=== PATIENT | male | born 1990 | race Caucasian/White ===

== ENCOUNTER 2016-09-02 12:10 | Inpatient (IN) | payer OTHER ==
[~2016-09-02] VITALS: Ht 180.3 cm; Wt 98.6 kg
[2016-09-02] MEDS ORDERED: HYDR-3326 PO (12:24)
[2016-09-02] MEDS ORDERED: KETOROLAC TROMETHAMINE 30 MG INJ IVP ONE (13:15)
[2016-09-02] MEDS ORDERED: ONDANSETRON 4 MG/2 ML VIAL IV ONE (13:15)
[2016-09-02] MEDS ORDERED: MORPHINE SULFATE 2 MG/1 ML DISP.SYRIN IV ONE (13:15)
[2016-09-02] MEDS ORDERED: IV NORMAL SALINE 1000 ML BAG IV ONE ×2 (13:15→14:30)
[2016-09-02] MEDS ORDERED: MORPHINE SULFATE 4 MG/1 ML DISP.SYRIN ONE (13:24)
[2016-09-02] MEDS ORDERED: ONDANSETRON 4 MG/2 ML VIAL ONE (13:24)
--- NOTE | 2016-09-02 13:24 | NUR ---
PT IS IN ROOM #2A. DR HOOKER EVALUATED THE PT.
[2016-09-02] MEDS ORDERED: KETOROLAC TROMETHAMINE 30 MG INJ ONE (13:25)
[2016-09-02 13:27] LABS: BASOPHILS # (AUTO) 0.2 K/uL (0.0-8.0); BASOPHILS % (AUTO) 1.5 % (0.0-2.0); EOSINOPHILS # (AUTO) 0.1 K/uL (0.0-0.7); EOSINOPHILS % (AUTO) 0.5 % (0.0-7.0); HEMATOCRIT 50.2 % (40-50); HEMOGLOBIN 17.1 G/DL (14.0-18.0); LYMPHOCYTES # (AUTO) 1.4 K/UL (0.8-4.8); LYMPHOCYTES % (AUTO) 8.8 % (20.5-51.5); MEAN CORPUSCULAR HEMOGLOBIN 29.3 UUG (27.0-31.0); MEAN CORPUSCULAR HGB CONC 34 g/dL (32.0-37.0); MONOCYTES # (AUTO) 1.4 K/UL (0.1-1.30); MONOCYTES % (AUTO) 8.8 % (0.0-11.0); NEUTROPHILS # (AUTO) 13.1 K/UL (1.8-8.9); NEUTROPHILS % (AUTO) 80.4 % (38.5-71.5); PLATELET COUNT (AUTO) 262 K/UL (150-450); RED BLOOD CELL COUNT(AUTO) 5.84 MIL/UL (4.7-6.1); RED CELL DISTRIBUTION WIDTH 12.4 % (11.5-14.5); WHITE BLOOD COUNT (AUTO) 16.2 K/UL (4.0-11.2)
[2016-09-02 13:39] LABS: BAND % (MANUAL) 1 % (0-10); LYMPHOCYTES % (MANUAL) 9 % (20-40); MONOCYTES % (MANUAL) 8 % (2-10); NEUTROPHILS % (MANUAL) 82 % (42-75)
[2016-09-02 13:40] LABS: ALBUMIN 4.5 g/dL (3.4-5.0); BILIRUBIN,DIRECT 0.2 mg/dL (0.0-0.2); BILIRUBIN,TOTAL 0.8 mg/dL (0.2-1.0); CALCIUM 9.6 mg/dL (8.5-10.1); CREATININE 1.1 mg/dL (0.6-1.3); PLATELET ESTIMATE ADEQUATE; POTASSIUM 3.9 mmol/L (3.5-5.1); TOTAL PROTEIN, SERUM 9.1 g/dL (6.4-8.2)
[2016-09-02 14:57] LABS: *BILIRUBIN,URIN NEGATIVE (NEGATIVE); *BLOOD, URINE Trace-lysed (NEGATIVE); *COLOR,URINE YELLOW (YELLOW); *KETONES,URINE NEGATIVE (NEGATIVE); *PROTEIN,URINE NEGATIVE (NEGATIVE); *UROBILINOGEN,URINE 0.2 E.U./dl (NORMAL); LEUKOCYTE ESTERASE ,URINE NEGATIVE (NEGATIVE); NITRITE, URINE NEGATIVE (NEGATIVE); PH,URINE 5.5 (5.0-8.0); UGLUCOSE NEGATIVE (NEGATIVE)
[2016-09-02 15:05] LABS: *CLARITY,URINE SLIGHTLY HAZY (CLEAR)
[2016-09-02 15:06] LABS: MUCUS,URINE MANY /LPF (0-FEW); URINE AMORPHOUS URATE FEW /HPF; WBC,URINE 0-3 /HPF (0-3)
--- NOTE | 2016-09-02 18:44 | NUR ---
pt was transferd to m/s room #[id number]. report was given to mera m/isidoro.
[2016-09-02] MEDS ORDERED: ONDANSETRON 4 MG/2 ML VIAL IV PRN (19:00)
[2016-09-02] MEDS ORDERED: MAGNESIUM HYDROXIDE 30 ML LIQUID UDC PO PRN (19:00)
[2016-09-02] MEDS ORDERED: ACETAMINOPHEN 325 MG TABLET PO PRN (19:00)
[2016-09-02] MEDS ORDERED: Z GUARD REMEDY PASTE 57 GM TUBE TOP PRN (19:00)
[2016-09-02] MEDS ORDERED: ZOLPIDEM 5 MG TABLET PO PRN (19:00)
[2016-09-02] MEDS ORDERED: MORPHINE SULFATE 4 MG/1 ML DISP.SYRIN IV PRN (19:00)
[2016-09-02 19:13] VITALS: BP 107/75
--- NOTE | 2016-09-02 19:45 | NUR ---
RECEIVED PT IN BED AWAKE, ALERT AND ORIENTEDX3, ABLE TO MAKE NEEDS KNOWN. DENIES SOB OR CHEST PAIN. NO C/O N/V. REPORTS PAIN AT A TOLERABLE LEVEL AT THIS MOMENT. MADE COMFORTABLE. ALL SAFETY NEEDS MET AT THIS TIME. CALL LIGHT IN REACH. WILL CONTINUE TO MONITOR.
[2016-09-02 20:00] VITALS: BP 117/90
[2016-09-02] MEDS: HYDROCODONE/APAP 5-325MG TABLET PO PRN (22:22)
[2016-09-03] MEDS: PANTOPRAZOLE SODIUM 40 MG TABLET.DR PO SCH (06:01)
[2016-09-03 06:27] VITALS: BP 120/75
--- NOTE | 2016-09-03 06:44 | NUR ---
PT SLEPT MOST OF THE NIGHT. NO ACUTE DISTRESS NOTED. C/O SEVERE ABDOMINAL AND BACK PAIN, MANAGED WITH PRN MEDS PRESCRIBED, EFFECTIVE PER PT'S REPORT. PT WITH X1 EPISODE OF DI[place]HE[place], WILL CONTINUE TO MONITOR, WILL ENDORSE PERTINENT INFO AND CARE TO DAY SHIFT. ALL SAFETY NEEDS MET. CALL LIGHT IN REACH. SAFETY MAINTAINED.
[2016-09-03 07:05] LABS: BASOPHILS % (AUTO) 0.1 % (0.0-2.0); EOSINOPHILS # (AUTO) 0.1 K/uL (0.0-0.7); EOSINOPHILS % (AUTO) 0.9 % (0.0-7.0); HEMATOCRIT 47.2 % (40-50); HEMOGLOBIN 16.3 G/DL (14.0-18.0); LYMPHOCYTES # (AUTO) 1.8 K/UL (0.8-4.8); LYMPHOCYTES % (AUTO) 12.2 % (20.5-51.5); MEAN CORPUSCULAR HEMOGLOBIN 29.7 UUG (27.0-31.0); MEAN CORPUSCULAR HGB CONC 35 g/dL (32.0-37.0); MEAN CORPUSCULAR VOLUME 86.1 FL (82.0-92.0); MONOCYTES # (AUTO) 1.5 K/UL (0.1-1.30); MONOCYTES % (AUTO) 10.3 % (0.0-11.0); NEUTROPHILS # (AUTO) 11.5 K/UL (1.8-8.9); NEUTROPHILS % (AUTO) 76.5 % (38.5-71.5); PLATELET COUNT (AUTO) 224 K/UL (150-450); RED BLOOD CELL COUNT(AUTO) 5.48 MIL/UL (4.7-6.1); RED CELL DISTRIBUTION WIDTH 12.6 % (11.5-14.5); WHITE BLOOD COUNT (AUTO) 14.9 K/UL (4.0-11.2)
[2016-09-03 07:33] LABS: CALCIUM 9.3 mg/dL (8.5-10.1); CREATININE 1.2 mg/dL (0.6-1.3); MAGNESIUM 1.7 mg/dL (1.8-2.4); PHOSPHOROUS 4.1 mg/dL (2.5-4.9); POTASSIUM 4.3 mmol/L (3.5-5.1)
[2016-09-03 11:04] VITALS: BP 120/84
[2016-09-03] MEDS: HYDROCODONE/APAP 5-325MG TABLET PO PRN (13:23)
[2016-09-03 15:10] VITALS: BP 106/79
[2016-09-03] MEDS: MAGNESIUM SULFATE/D5W 100 ML IV SCH ×2 (17:46→18:35)
[2016-09-03 20:00] VITALS: BP 135/87
[2016-09-04 06:00] VITALS: BP 100/66
[2016-09-04] MEDS: PANTOPRAZOLE SODIUM 40 MG TABLET.DR PO SCH (06:11)
--- NOTE | 2016-09-04 07:00 | NUR ---
PT SLEPT WELL PER SHIFT. NO ACUTE DISTRESS NOTED. PAIN REPORTED AT A TOLERABLE LEVEL, NO PRN MED REQUESTED. ALL NEEDS ATTENDED. UNABLE TO COLLECT STOOL FOR STUDIES, NO BM PER SHIFT. CALL LIGHT IN REACH. ON CONTACT PRECAUTIONS. SAFETY MAINTAINED. WILL ENDORSE PLAN OF CARE TO DAY SHIFT NURSE.
[2016-09-04 07:15] LABS: CALCIUM 9.3 mg/dL (8.5-10.1); CREATININE 1.1 mg/dL (0.6-1.3); MAGNESIUM 2.2 mg/dL (1.8-2.4); POTASSIUM 4.4 mmol/L (3.5-5.1)
[2016-09-04] MEDS: HYDROCODONE/APAP 5-325MG TABLET PO PRN ×2 (09:29→19:53)
[2016-09-04 12:10] VITALS: BP 119/85
[2016-09-04 16:11] VITALS: BP 111/79
--- NOTE | 2016-09-04 18:04 | NUR ---
PATIENT BEEN IN BED RESTING. NO S/S OF DISTRESS NOTED. C/O OF PAIN ON THE LOWER BACK DURING THE MORNING, MEDICATED ORDERED. DURING AFTERNOON PATIENT HAVE BEEN DRAWING AND WATCHING TV, DENIED HAVING PAIN AND ANY EPISODE OF LOOSE STOOLS. FAMILY MEMBERS CAME TO VISIT. SAFETY AND COMFORT PROVIDED DURING THE DAY. WILL CONTINUE MONITORING.
--- NOTE | 2016-09-04 19:30 | NUR ---
RESTING IN BED COMFORTABLY. NO ACUTE DISTRESS NOTED. ABLE TO MAKE NEEDS KNOWN. NEEDS ATTENDED. SAFETY INITIATED. CALL LIGHT WITHIN REACH. WILL MONITOR
[2016-09-04 20:00] VITALS: BP 106/74
[2016-09-05 04:48] VITALS: BP 110/78
--- NOTE | 2016-09-05 06:27 | NUR ---
SLEPT INTERMITTENTLY DURING THE SHIFT. NO ACUTE DISTRESS NOTED. ALL DUE MEDS GIVEN ORDERED. KEPT COMFORTABLE AT ALL TIMES. NEEDS ATTENDED. CALL LIGHT WITHIN REACH
[2016-09-05] MEDS: PANTOPRAZOLE SODIUM 40 MG TABLET.DR PO SCH (06:31)
[2016-09-05 07:08] LABS: BASOPHILS # (AUTO) 0.1 K/uL (0.0-8.0); BASOPHILS % (AUTO) 0.6 % (0.0-2.0); EOSINOPHILS # (AUTO) 0.2 K/uL (0.0-0.7); EOSINOPHILS % (AUTO) 2.4 % (0.0-7.0); HEMATOCRIT 47.5 % (40-50); HEMOGLOBIN 16.6 G/DL (14.0-18.0); LYMPHOCYTES # (AUTO) 2.3 K/UL (0.8-4.8); LYMPHOCYTES % (AUTO) 23.1 % (20.5-51.5); MEAN CORPUSCULAR HEMOGLOBIN 29.9 UUG (27.0-31.0); MEAN CORPUSCULAR HGB CONC 35 g/dL (32.0-37.0); MEAN CORPUSCULAR VOLUME 85.7 FL (82.0-92.0); MONOCYTES # (AUTO) 1.2 K/UL (0.1-1.30); MONOCYTES % (AUTO) 11.6 % (0.0-11.0); NEUTROPHILS # (AUTO) 6.3 K/UL (1.8-8.9); NEUTROPHILS % (AUTO) 62.3 % (38.5-71.5); PLATELET COUNT (AUTO) 254 K/UL (150-450); RED BLOOD CELL COUNT(AUTO) 5.54 MIL/UL (4.7-6.1); RED CELL DISTRIBUTION WIDTH 12.3 % (11.5-14.5); WHITE BLOOD COUNT (AUTO) 10.1 K/UL (4.0-11.2)
[2016-09-05 07:20] LABS: CALCIUM 9.6 mg/dL (8.5-10.1); CREATININE 1.2 mg/dL (0.6-1.3); POTASSIUM 4.7 mmol/L (3.5-5.1)
[2016-09-05] MEDS: HYDROCODONE/APAP 5-325MG TABLET PO PRN (10:30)
[2016-09-05] MEDS ORDERED: HYDR-548 PO (11:05)
[2016-09-05 11:06] VITALS: BP 100/76
--- NOTE | 2016-09-05 14:00 | NUR ---
PATIENT BEEN IN BED RESTING, NO S/S OF DISTRESS NOTED. C/O OF PAIN, MEDICATED ORDERED. DISCHARGE BY DR. CHANG IN STABLE CONDITION. HOME HEALTH WILL BE ARRANGE BY FAMILY PER RODOLFO SINGLETON REPORTED. DISCHARGE INSTRUCTIONS WERE EXPLAINED, A COPY WAS PROVIDED WELL PRESCRIPTIONS. IV AND ID REMOVED. BELONGINGS WERE TAKEN BY THE MOM EXCEPT FOR PHONE, CHARGES AND EARPLUGS. SAFETY AND COMFORT PROVIDED. MOM WILL BE PICKING HIM UP. MEANWHILE WILL CONTINUE MONITORING.
--- NOTE | 2016-09-05 15:56 | NUR ---
PATIENT REFUSED TO GO BY WHEELCHAIR, PREFERRED TO GO WITH HIS WALKER. STEADY GAIT, HE WAS ACCOMPANIED BY STUDENTS NURSES TO HER PRIVATE CAR.
== END 2016-09-05 13:38 | disposition home health service (06) | DRG 552 ==
LOC: ER 12:12 → MED 18:25
PROVIDERS: ADMIT Family Medicine; ATTEND Family Medicine
DX: S32.009A Unspecified fracture of unspecified lumbar vertebra, initial encounter for closed fracture (principal); V00.311A Fall from snowboard, initial encounter; Y93.23 Activity, snow (alpine) (downhill) skiing, snowboarding, sledding, tobogganing and snow tubing; Y92.9 Unspecified place or not applicable; F71 Moderate intellectual disabilities; D72.829 Elevated white blood cell count, unspecified; E83.42 Hypomagnesemia; R79.89 Other specified abnormal findings of blood chemistry; R19.7 Diarrhea, unspecified
CPT/HCPCS: 36415; 83735; 84100; 85025; 97001; 97003; A4663; J1885; J2270; J2405; J3475; J7030; J7040

== ENCOUNTER 2022-12-22 00:48 | Emergency (ER) | payer OTHER ==
[~2022-12-22] VITALS: Ht 175.3 cm; Wt 907.2 kg
[~2022-12-22 00:48] MED LIST: HYDR-4354 PO
[2022-12-22] MEDS ORDERED: KETOROLAC TROMETHAMINE 30 MG INJ IVP ONE (01:45)
[2022-12-22] MEDS ORDERED: METOCLOPRAMIDE HCL 10 MG/2 ML VIAL IV ONE (01:45)
[2022-12-22] MEDS ORDERED: diphenhydrAMINE 50 MG/1 ML VIAL IV ONE (01:45)
[2022-12-22] MEDS ORDERED: IV NS 1000 ML 1,000 ML IV ONE (01:45)
[2022-12-22] MEDS ORDERED: diphenhydrAMINE 50 MG/1 ML VIAL ONE (02:02)
[2022-12-22] MEDS ORDERED: METOCLOPRAMIDE HCL 10 MG/2 ML VIAL ONE (02:03)
[2022-12-22] MEDS ORDERED: KETOROLAC TROMETHAMINE 30 MG INJ ONE (02:03)
[2022-12-22] MEDS ORDERED: MAGNESIUM SULFATE/D5W 100 ML ONE ×2 (02:03→03:04)
[2022-12-22] MEDS: MAGNESIUM SULFATE/D5W 100 ML IV SCH ×2 (02:13→02:45)
[2022-12-22] MEDS ORDERED: NAPR-1009 PO (03:04)
[2022-12-22] MEDS ORDERED: METO-295 PO (03:04)
[2022-12-22] MEDS ORDERED: DIPH25CA83 PO (03:04)
[2022-12-22 04:03] VITALS: BP 132/80; TEMP 98.4; O2SAT 97
== END 2022-12-22 03:40 | disposition home or self-care (01) ==
LOC: ER 00:57
DX: G43.909 Migraine, unspecified, not intractable, without status migrainosus (principal); Z79.899 Other long term (current) drug therapy
CPT/HCPCS: 99284; 96365; 96375; J1200; J1885; J3475 ×2; J2765; J7040; A4663

== ENCOUNTER 2022-12-27 18:58 | Emergency (ER) | payer OTHER ==
[~2022-12-27] VITALS: Ht 180.3 cm; Wt 90.7 kg
[~2022-12-27 18:58] MED LIST changes: +DIPH25CA83 PO; +METO-295 PO; +NAPR-1009 PO
[2022-12-27 20:36] LABS: BASOPHILS # (AUTO) 0.1 K/UL (0.0-0.2); BASOPHILS % (AUTO) 0.4 % (0.0-2.0); DIFFERENTIAL COMMENT 0; EOSINOPHILS # (AUTO) 0.2 K/uL (0.0-0.7); EOSINOPHILS % (AUTO) 1.8 % (0.0-7.0); HEMATOCRIT 46.8 % (36.7-47.1); HEMOGLOBIN 15.9 g/dL (12.5-16.3); LYMPHOCYTES # (AUTO) 3.1 K/uL (0.8-4.8); LYMPHOCYTES % (AUTO) 26.2 % (20.5-51.5); MEAN CORPUSCULAR HEMOGLOBIN 29.7 uug (23.8-33.4); MEAN CORPUSCULAR HGB CONC 34 g/dL (32.5-36.3); MEAN CORPUSCULAR VOLUME 87.3 fL (73.0-96.2); MONOCYTES # (AUTO) 1.2 K/uL (0.1-1.30); MONOCYTES % (AUTO) 10.2 % (0.0-11.0); NEUTROPHILS # (AUTO) 7.2 K/uL (1.8-8.9); NEUTROPHILS % (AUTO) 61.4 % (38.5-71.5); PLATELET COUNT (AUTO) 291 K/uL (152-348); RED BLOOD CELL COUNT(AUTO) 5.36 MIL/uL (4.06-5.63); RED CELL DISTRIBUTION WIDTH 13.9 % (12.1-16.2); WHITE BLOOD COUNT (AUTO) 11.8 K/uL (3.6-10.2)
[2022-12-27 20:38] LABS: CALCIUM 9.5 mg/dL (8.5-10.1); CREATININE 1.1 mg/dL (0.6-1.3); POTASSIUM 5.1 mmol/L (3.5-5.1)
[2022-12-27 20:44] LABS: ALBUMIN 4.3 g/dL (3.4-5.0); BILIRUBIN,TOTAL 0.5 mg/dL (0.2-1.0); TOTAL PROTEIN, SERUM 8.4 g/dL (6.4-8.2)
[2022-12-27] MEDS ORDERED: HYDR1KIT RC (21:16)
[2022-12-27 21:39] VITALS: BP 109/77; TEMP 98.2; O2SAT 95
== END 2022-12-27 21:30 | disposition home or self-care (01) ==
LOC: ER 19:06
DX: K64.4 Residual hemorrhoidal skin tags (principal); G43.909 Migraine, unspecified, not intractable, without status migrainosus; Z79.899 Other long term (current) drug therapy
CPT/HCPCS: 36415; 85025; 85610; 86850; 86900; 86901; A4663

== ENCOUNTER 2023-08-06 06:48 | Emergency (ER) | payer OTHER ==
[~2023-08-06] VITALS: Ht 180.3 cm; Wt 93.0 kg
[~2023-08-06 06:48] MED LIST changes: +HYDR1KIT RC
[2023-08-06] MEDS ORDERED: antidepressant PO (07:03)
[2023-08-06 07:56] LABS: BASOPHILS # (AUTO) 0.1 K/UL (0.0-0.2); BASOPHILS % (AUTO) 0.6 % (0.0-2.0); EOSINOPHILS # (AUTO) 0.2 K/uL (0.0-0.7); EOSINOPHILS % (AUTO) 1.6 % (0.0-7.0); HEMATOCRIT 43.3 % (36.7-47.1); HEMOGLOBIN 15.4 g/dL (12.5-16.3); LYMPHOCYTES % (AUTO) 18.7 % (20.5-51.5); MEAN CORPUSCULAR HEMOGLOBIN 29.6 uug (23.8-33.4); MEAN CORPUSCULAR HGB CONC 36 g/dL (32.5-36.3); MEAN CORPUSCULAR VOLUME 83.5 fL (73.0-96.2); MONOCYTES # (AUTO) 1.1 K/uL (0.1-1.30); MONOCYTES % (AUTO) 10.4 % (0.0-11.0); NEUTROPHILS # (AUTO) 7.4 K/uL (1.8-8.9); NEUTROPHILS % (AUTO) 68.7 % (38.5-71.5); PLATELET COUNT (AUTO) 258 K/uL (152-348); RED BLOOD CELL COUNT(AUTO) 5.19 MIL/uL (4.06-5.63); WHITE BLOOD COUNT (AUTO) 10.7 K/uL (3.6-10.2)
[2023-08-06 08:11] LABS: CALCIUM 9.4 mg/dL (8.5-10.1); CREATININE 1.1 mg/dL (0.6-1.3); POTASSIUM 3.6 mmol/L (3.5-5.1)
[2023-08-06 08:20] LABS: ALBUMIN 3.9 g/dL (3.4-5.0); BILIRUBIN,DIRECT 0.1 mg/dL (0.0-0.2); BILIRUBIN,TOTAL 0.5 mg/dL (0.2-1.0); DIFFERENTIAL COMMENT 1; TOTAL PROTEIN, SERUM 7.8 g/dL (6.4-8.2)
[2023-08-06 09:10] VITALS: O2SAT 99
== END 2023-08-06 09:14 | disposition home or self-care (01) ==
LOC: ER 06:53
DX: R10.11 Right upper quadrant pain (principal); G43.909 Migraine, unspecified, not intractable, without status migrainosus; Z79.899 Other long term (current) drug therapy
CPT/HCPCS: 36415; 71045; 83690; 85025; 93005; A4606; A4663

== ENCOUNTER 2024-01-15 19:28 | Emergency (ER) | payer MEDICARE, MEDICAID ==
[~2024-01-15] VITALS: Ht 177.8 cm; Wt 99.8 kg
[~2024-01-15 19:28] MED LIST changes: -DIPH25CA83 PO; -HYDR-4354 PO; -HYDR1KIT RC; -METO-295 PO; -NAPR-1009 PO; +antidepressant PO
[2024-01-15] MEDS ORDERED: KETOROLAC TROMETHAMINE 30 MG INJ ONE (19:58)
[2024-01-15] MEDS: KETOROLAC TROMETHAMINE 30 MG INJ IM ONE (20:05)
[2024-01-15 21:03] LABS: *BILIRUBIN,URIN NEGATIVE (NEGATIVE); *CLARITY,URINE CLEAR (CLEAR); *KETONES,URINE NEGATIVE (NEGATIVE); *PROTEIN,URINE NEGATIVE (NEGATIVE); *UROBILINOGEN,URINE 0.2 E.U./dl (NORMAL); LEUKOCYTE ESTERASE ,URINE NEGATIVE (NEGATIVE); NITRITE, URINE NEGATIVE (NEGATIVE); UGLUCOSE NEGATIVE (NEGATIVE)
[2024-01-15 21:08] LABS: *BLOOD, URINE TRACE (NEGATIVE); *COLOR,URINE DARK YELLOW (YELLOW)
[2024-01-15 21:14] LABS: RBC,URINE 0-3 /HPF (0-3); WBC,URINE 0-3 /HPF (0-3)
[2024-01-15 21:15] LABS: SQUAMOUS EPITHELIAL CELL,UR FEW /HPF (NONE SEEN)
[2024-01-15 21:16] LABS: BACTERIA,URINE FEW /HPF (NONE SEEN); MUCUS,URINE MODERATE /LPF (0-FEW)
[2024-01-15] MEDS ORDERED: CYCL5TAB PO (21:56)
[2024-01-15] MEDS ORDERED: NAPR500T6 PO (21:57)
[2024-01-15] MEDS ORDERED: MORPHINE SULFATE 2 MG/1 ML DISP.SYRIN ONE (22:00)
[2024-01-15] MEDS: MORPHINE SULFATE 2 MG/1 ML DISP.SYRIN IM ONE (22:07)
[2024-01-15 22:17] VITALS: BP 120/72; TEMP 97.8; O2SAT 98
== END 2024-01-15 22:15 | disposition home or self-care (01) ==
LOC: ER 19:35
DX: M54.50 Low back pain, unspecified (principal); G43.909 Migraine, unspecified, not intractable, without status migrainosus; Z79.899 Other long term (current) drug therapy; Z88.7 Allergy status to serum and vaccine
CPT/HCPCS: 99285; 72128; 81001; 72131; 96372 ×2; J1885; J2270; A4606; A4663